=== PATIENT | male | born 1980 | race Caucasian/White ===

== ENCOUNTER 2018-10-12 14:33 | Inpatient (IN) ==
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
[2018-10-12] MEDS ORDERED: Sod Chloride 0.9% Inj 1,000 ML IV.CONT SCH (14:45)
[2018-10-12 15:18] LABS: Baso % (Auto) 0.3 % (0.0-2.0); Eos # (Auto) 0.1 th/mm3 (0.0-0.4); Eos % (Auto) 0.6 % (0.0-4.0); Hematocrit 41.2 % (39.0-51.0); Hemoglobin 14.6 gm/dL (13.0-17.0); Lymph # (Auto) 1.5 th/mm3 (1.0-4.8); Lymph % (Auto) 14.7 % (9.0-44.0); Mean Corpuscular HGB Conc 35.4 % (32.0-36.0); Mean Corpuscular Hemoglobin 30.5 pg (27.0-34.0); Mean Corpuscular Volume 86.2 fL (80.0-100.0); Mean Platelet Volume 7.7 fL (7.0-11.0); Mono # (Auto) 0.5 th/mm3 (0.0-0.9); Mono % (Auto) 4.5 % (0.0-8.0); Neut # (Auto) 8.3 th/mm3 (1.8-7.7); Neut % (Auto) 79.9 % (16.0-70.0); Platelet Count 254 th/mm3 (150-450); Red Blood Count 4.78 mil/mm3 (4.50-5.90); Red Cell Distribution Width 13.1 % (11.6-17.2); White Blood Count 10.4 th/mm3 (4.0-11.0)
[2018-10-12 15:46] LABS: Alanine Aminotransferase 30 U/L (12-78); Alkaline Phosphatase 62 U/L (45-117); Total Protein 8.1 g/dL (6.4-8.2)
[2018-10-12 15:52] LABS: Albumin 4.1 g/dL (3.4-5.0); Anion Gap 7 meq/L (5-15); Aspartate Aminotransferase 25 U/L (15-37); Blood Urea Nitrogen 16 mg/dL (7-18); Calcium 8.8 mg/dL (8.5-10.1); Carbon Dioxide 27.5 meq/L (21.0-32.0); Chloride 103 meq/L (98-107); Glomerular Filtration Rate 77 mL/min (>89); Glucose,Random 94 mg/dL (74-106); Potassium 4.2 meq/L (3.5-5.1); Sodium 137 meq/L (136-145)
[2018-10-12 16:16] LABS: Bilirubin,Urine Negative (Negative); Clarity,Urine Clear (Clear); Color,Urine Yellow (Yellw/Straw); Glucose,Urine (UA) Negative (Negative); Leukocyte Esterase,Urine Negative (Negative); Mucus,Urine Few /lpf (Occasional); Nitrite,Urine Negative (Negative); Specific Gravity,Urine 1.019 (1.002-1.035); Squamous Epithelial Cell,Urine <1 /hpf (0-5)
[2018-10-12 16:21] LABS: Amphetamine Screen,Urine Neg (Neg); Barbiturate Screen,Urine Neg (Neg); Cannabinoid Screen,Urine Neg (Neg); Cocaine Screen,Urine Neg (Neg)
[2018-10-12 16:27] LABS: Opiate Screen,Urine Pos (Neg)
[2018-10-12] MEDS ORDERED: Gadobutrol PF 10 MMOL/10 ML Vial (for RAD) IV.SIG ONE (16:36)
--- NOTE | 2018-10-12 16:52 | MR ---
EXAM DATE: 10/12/2018 4:47 PM EST AGE/SEX: 38 years / Male INDICATIONS: . Urinary retention. CLINICAL DATA: This is the patient's initial encounter. Patient reports that signs and symptoms have been present for 1 day and indicates a pain score of 5/10. MEDICAL/SURGICAL HISTORY: Hypertension. IVDU. Discectomy, cervical. Appendectomy. Cholecyste ctomy. COMPARISON: No prior exams available for comparison. TECHNIQUE: Multiplanar, multisequence MRI of the thoracic spine was performed without and with 11 ml Gadavist (gadobutrol) contrast as a single exam dose. FINDINGS: Vertebrae: Normal vertebral body height. Homogeneous marrow signal. Alignment: Normal. Cord: Normal sized to the thoracic cord has normal signal characteristics within. The conus is at th e level of T12. Post Contrast: No abnormal areas of enhancement are seen in the cord, dural or paraspinal regions. T1-T2: The thecal sac has a normal diameter. No evidence of disc bulge or protrusion. T2-T3: The thecal sac has a normal diameter. No evidence of disc bulge or protrusion. T3-T4: The thecal sac has a normal diameter. No evidence of disc bulge or protrusion. T4-T5: The thecal sac has a normal diameter. No evidence of disc bulge or protrusion. T5-T6: Mild left parasagittal disc bulging. T6-T7: Small central disc protrusion measuring less than 2 mm indenting on the thecal sac but not ca using cord compression. No lateral extension. T7-T8: Mild central and left paracentral bulging of the disc causing mild flattening of the ventral margin of thecal sac. T8-T9: The thecal sac has a normal diameter. No evidence of disc bulge or protrusion. T9-T10: The thecal sac has a normal diameter. No evidence of disc bulge or protrusion. T10-T11: The thecal sac has a normal diameter. No evidence of disc bulge or protrusion. Moderate as ymmetric facet joint hypertrophy on the right side indenting on the dorsal lateral aspect of the thec al sac. T11-T12: The thecal sac has a normal diameter. No evidence of disc bulge or protrusion. T12-L1: The thecal sac has a normal diameter. No evidence of disc bulge or protrusion. CONCLUSION: 1. Small central disc protrusion at T6-7 without evidence of cord compression or lateral extension. 2. Mild disc bulging T5-6 and T7-8. Electronically signed by: Rl Romo MD 10/12/2018 4:51 PM EST
--- NOTE | 2018-10-12 17:00 | MR ---
EXAM DATE: 10/12/2018 4:49 PM EST AGE/SEX: 38 years / Male INDICATIONS: . Urinary retention. CLINICAL DATA: This is the patient's initial encounter. Patient reports that signs and symptoms have been present for 1 day and indicates a pain score of 4/10. MEDICAL/SURGICAL HISTORY: Hypertension. Cholecystectomy. Appendectomy. Discectomy, cervical. COMPARISON: No prior exams available for comparison. TECHNIQUE: Multiplanar, multisequence MRI examination of the lumbar spine was performed without and with 11 ml Gadavist (gadobutrol) contrast as a single exam dose. FINDINGS: The most caudal-appearing lumbar vertebra is numbered as L5. There is normal alignment of the vertebral bodies of the lumbar spine and preservation of vertebral body height. No signal abnorma lity is seen within the marrow. There is desiccation of the L3-S1 discs without significant loss of i nterspace height. The conus is at the level of T12. On the postcontrast images, there is some enhance ment in the disc extrusion at L2-3 and in the posterior annulus of L5-S1. No abnormal enhancement in the vertebral bodies or posterior elements. T12-L1: The thecal sac has a normal diameter. No evidence of disc bulge or protrusion. The neural foramina are patent bilaterally. L1-L2: The thecal sac has a normal diameter. No evidence of disc bulge or protrusion. The neural foramina are patent bilaterally. L2-L3: Abnormal. There is a central extrusion of the disc which causes significant impression upon the thecal sac and loss of CSF within the thecal sac. The extrusion measures 8 mm in AP dimension and does not significantly extend superior inferior, however, there is soft tissue posterior to the L2 a nd L3 vertebral bodies which is more prominent right parasagittal than left and causes indentation up on the thecal sac. No lateral extension into the neural foramina.. L3-L4: The thecal sac has a normal diameter. No evidence of disc bulge or protrusion. The neural foramina are patent bilaterally. L4-L5: Mild left lateral disc bulging into the neural foramen without neural impingement. No centra l disc bulge. L5-S1: High intensity zone of signal in the posterior inferior annulus and evidence of a central di sc protrusion which is contained within the epidural fat. There is no deformity of the thecal sac and no deviation of the S1 nerve roots as they course through the bony spinal canal. CONCLUSION: 1. Large central disc extrusion at the L2-3 level causing significant impression on the thecal sac a nd probably causing significant neural impingement on the nerve roots within the thecal sac. 2. Annular tear and central disc protrusion at the L5-S1 level contained within the epidural fat wit hout deformity of the thecal sac or lateral extension. Electronically signed by: Rl Romo MD 10/12/2018 4:59 PM EST
--- NOTE | 2018-10-12 19:14 | P.CONNS ---
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 Seen in [facility] ED, given pain meds and these worked off and on during the week, may have had some urinary retention. Overnight, pain became severe and he was unable to come in. Finally came during the day, had such severe pain, he couldn't really stand. Transfer from [facility] to here due to MRI, showing at L2/3 severe stenosis due to a herniated disc. He is not numb in his inguinal regions but describes coldness in his feet and testicle. He has had prior cervical laminectomy in 2015 [place] due to a delayed hematoma from a fracture requiring 2 level lami's, no fusion. [facility] - History History Provided By: Patient, Family Member - Medical History Medical History: Medical History (Last Reviewed 10/12/18 @ 14:36 by Sushant Titus) Hx of blood clots Patient denies medical problems - Surgical History Surgical History: Surgical History (Last Reviewed 10/12/18 @ 14:36 by Sushant Titus) Hx of appendectomy Hx of cholecystectomy Hx of laminectomy Hx of neck surgery - Tobacco History Second Hand Smoke Exposure: No Smoking Status: Never smoker - Alcohol History How Often Do You Have a Drink Containing Alcohol: Never - Substance Use History Substance History: No History of Abuse - Travel History Recent Travel in the [place] Within the Last 8 Weeks: No Recent Travel Out of the Country Within the Last 8 Weeks: No - Immunization History Tetanus Immunization: Unsure Medications and Allergies Active Medications: Active Medications Sodium Chloride (Ns Inj) 1,000 mls @ 125 mls/hr IV.CONT .Q8H JOHN Stop: 10/12/18 22:44 Last Admin: 10/12/18 15:23 Dose: 125 mls/hr Sodium Chloride (Ns Flush) 2 ml IV.FLUSH UNSCH PRN PRN Reason: FLUSH AFTER USING IV ACCESS Allergies Allergy/AdvReac Type Severity Reaction Status Date / Time acetaminophen [From Percocet] AdvReac Agitation Verified 10/12/18 11:29 oxycodone [From Percocet] AdvReac Agitation Verified 10/12/18 11:29 Exam Vital signs: Vital Signs 10/12/18 14:39 10/12/18 15:06 Temperature 97 F L Pulse Rate 76 72 Respiratory Rate 18 Blood Pressure 170/68 H Pulse Oximetry 99 96 Intake & Output 10/12/18 10/12/18 10/13/18 06:59 18:59 06:59 Output Total 100 / 100 Balance -100 / -100 Weight 111.13 kg Output: Urine 100 / 100 Narrative: A&O x 3 CN ii-xii intact motor 5/5 UE/LE-- individually tests to full strength in all groups and he is able to stand, but not upright sensation intact throughout Results - Laboratory Findings CBC and BMP: 10/12/18 14:53 10/12/18 14:53 Abnormal lab findings: Abnormal Labs 10/12/18 10/12/18 10/12/18 14:53 14:53 16:04 Neut % (Auto) 79.9 H Neut # (Auto) 8.3 H Estimated GFR 77 L Urine Mucus Urine Opiates Screen Pos H 10/12/18 16:04 Neut % (Auto) Neut # (Auto) Estimated GFR Urine Mucus Few H Urine Opiates Screen - Diagnostic Findings Additional findings: MRI L-spine showing large disc at L2/3 with central stenosis Assessment and Plan - Plan 38yoM with cauda equina type syndrome from L2/3 disc. Unclear if urinary symptoms are from narcotics as he is able to void. But pain is severe and he is unable to stand upright. Discussed watching this vs. surgery and my preference would be surgery urgently. Patient is in agreement. Plan for full L2/3 lami and discectomy. Patient understands the risks of surgery including CSF leak.
[2018-10-12] MEDS ORDERED: Thrombin Topical Soln 5,000 UNIT Vial TOPICAL ONE (19:25)
[2018-10-12] MEDS ORDERED: Lidocaine 1%/Epinephrine 1:100,000 Inj 30 ML Vial ONE (19:25)
[2018-10-12] MEDS ORDERED: Bupivacaine 0.25% Inj 50 ML MDV Vial ONE (19:25)
[2018-10-12] MEDS ORDERED: Gelatin Size 100 Topical Foam ONE (19:26)
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
[2018-10-12] MEDS ORDERED: Lidocaine PF 1% Inj 5 ML Syringe OTHER ONE (20:22)
[2018-10-12] MEDS ORDERED: Sugammadex Inj 200 MG/2 ML Vial IV.PUSH ONE (22:08)
--- NOTE | 2018-10-12 22:27 | P.OP ---
- Preoperative Diagnosis (1) Disc disease with myelopathy, lumbar (2) Cauda equina syndrome - Postoperative Diagnosis (1) Cauda equina syndrome (2) Disc disease with myelopathy, lumbar Date of procedure: 10/12/18 Procedure: L2/3 laminectomy and right microdiscectomy Anesthesia: SCARLETT Surgeon: Iván Bellamy MD Estimated blood loss (mL): 50 Pathology: none sent Operation and Findings: Indications: This is a 38yo male with one week history of progressive back pain with now urinary retention and pain so severe he cannot stand. He has been to the ED twice, including today on exacerbation of his pain. Microdiscectomy due to severe stenosis and laminectomy are indicated for decompression. Description of procedure: Patient brought to Main OR and the procedure done under general. Mid lumbar spine was prepped and draped in the usual sterile fashion. Fluoroscopy was used to isolate the L2/3 interspace. Incision infiltrated, then opened sharply to the L2/3 interval. Monopolar cautery used to complete a subperiosteal dissection down the L2 spinous process and lamina bilaterally. Leksell used to remove the l2 spinous process and drill used to complete the laminectomy over inferior L2. Curettes used to free the ligamentum flavum which was removed with a 3-Kerrison, then epidural fat. Thecal sac appeared full and bulging. Right medial facet drilled to expose the underlying nerve root. Very large disc fragment was removed in one piece and then discectomy performed at L2/3 interval. At the completion of discectomy, thecal sac and underlying nerve root were free of tension. Wound irrigated with antibiotic irrigation, and surgiflo placed in the exposed discectomy site. Wound closed in layers with interrupted 2-0 Vicryl for deep and superficial fascia, 3-0 Vicryl inverted for subcutaneous, monocril and dermabond for skin. Sterile dressings applied, patient returned supine,extubated, and sent to recovery in stable condition.
[2018-10-12] MEDS ORDERED: Morphine Inj 4 MG/ML Vial ONE (22:46)
[2018-10-12] MEDS ORDERED: fentaNYL Citrate Inj 100 MCG/2 ML Ampul ONE (22:46)
[2018-10-12] MEDS ORDERED: Morphine Sulfate Inj 2 MG/ML Vial IV.PUSH PRN (22:55)
[2018-10-12] MEDS ORDERED: Morphine Inj 4 MG/ML Vial IV.PUSH PRN (22:59)
--- NOTE | 2018-10-12 23:09 | XR ---
EXAM DATE: 10/12/2018 10:59 PM EST AGE/SEX: 38 years / Male INDICATIONS: Level location for laminectomy lumbar spine at the two-three level. CLINICAL DATA: This is the patient's subsequent encounter. Patient reports that signs and symptoms h ave been present for 1 day and indicates a pain score of Nonresponsive. MEDICAL/SURGICAL HISTORY: Hypertension. Cholecystectomy. Appendectomy. Discectomy, cervical. COMPARISON: No prior exams available for comparison. FINDINGS: 3 intraoperative films demonstrates localization device extending through the L3 vertebral body CONCLUSION: Final film demonstrates localization of the spinous process I believe of L3 Electronically signed by: Duke Zee MD 10/12/2018 11:08 PM EST
[2018-10-12] MEDS: Senna/Docusate Sodium 8.6/50 MG Tablet PO SCH (23:11)
[2018-10-13] MEDS: Acetaminophen 325 MG Tablet PO PRN ×2 (07:41→20:08)
[2018-10-13] MEDS: Senna/Docusate Sodium 8.6/50 MG Tablet PO SCH ×3 (07:42→20:08)
--- NOTE | 2018-10-13 11:20 | P.PNNS ---
Subjective Interval history: Doing well this morning, pain much improved in back. looking forward to working with PT. Physical Exam Vital signs: Vital Signs 10/12/18 14:39 10/12/18 15:06 10/12/18 22:38 Temperature 97 F L 97.8 F Pulse Rate 76 72 100 H Respiratory Rate 18 16 Blood Pressure 170/68 H 127/61 Pulse Oximetry 99 96 100 10/12/18 22:45 10/12/18 23:00 10/12/18 23:15 Temperature 97.5 F L Pulse Rate 92 H 107 H 96 H Respiratory Rate 18 21 16 Blood Pressure 138/72 143/72 H 142/77 H Pulse Oximetry 100 98 98 10/13/18 00:00 10/13/18 04:00 10/13/18 07:21 Temperature 97.6 F 97.7 F Pulse Rate 82 70 56 L Respiratory Rate 18 17 Blood Pressure 148/77 H 135/75 Pulse Oximetry 99 99 10/13/18 08:00 Temperature 97.8 F Pulse Rate 71 Respiratory Rate 18 Blood Pressure 130/69 Pulse Oximetry 99 Intake & Output 10/12/18 10/13/18 10/13/18 18:59 06:59 18:59 Intake Total 950 / 950 Output Total 100 / 100 800 / 800 Balance -100 / -100 150 / 150 Weight 111.13 kg Intake: IV 0 / 0 NS Inj 1,000 ML @ 125 mls/hr IV 0 / 0 .CONT .Q8H COUNTS INCLUDE 234 BEDS AT THE [facility] Rx#:[id number] Anesthesia Amount 950 / 950 Output: Urine 100 / 100 Estimated Blood Loss 200 / 200 Urine Amount (Catheter) 600 / 600 Indwelling Urethral Catheter 600 / 600 Narrative: Dressing c/d/i full strength UE/LE sensation intact Voided three times this morning - Urinary Catheter Management Indwelling Urethral Catheter Cath placed during this visit: yes, but has since been removed by the nurse Reason for continuing: Decision to DC catheter Insertion date: 10/12/18 Removal date: 10/13/18 Removal time: 00:00 Assessment and Plan - Plan 38yoM with cauda equina type syndrome from L2/3 disc. Unclear if urinary symptoms are from narcotics as he is able to void. But pain is severe and he is unable to stand upright. Discussed watching this vs. surgery and my preference would be surgery urgently. Patient is in agreement. Plan for full L2/3 lami and discectomy. Patient understands the risks of surgery including CSF leak. 10/13 Doing well after surgery, PT, activity and diet as tolerated anticipate d/c 10/14 - with 6 week followup no heavy lifting > 10 lbs during this time dressing off in 1-2 days without replacement
--- NOTE | 2018-10-13 11:50 | P.HPFP ---
History of Present Illness Primary Care Physician: UNKNOWN Chief Complaint: Increased pain, difficulty walking History of Present Illness: reviewed and discussed H&P from overnight resident Dr Haines. Agree with his histories and ROS as document. Interval history: Had L2/L3 laminectomy and microdiscectomy by Dr Bellamy. He is doing well and moving his legs without difficulty this AM. He is eating post operatively and about to work with PT. He is urinating well after the procedure, no fevers or chills or vomiting Pain is under good control. - Diagnosis (1) Nutrition, metabolism, and development symptoms (2) Disc disease with myelopathy, lumbar (3) Cauda equina syndrome Inpatient Certification: I certify that the inpatient services were ordered in accordance with Medicare regulations governing the order. This includes certification that hospital inpatient services are reasonable and necessary and in the case of services not specified as inpatient-only under 42 CFR 419.22(n), that they are appropriately provided as inpatient services in accordance to with the 2-midnight benchmark under 43 CFR 412.3(e) Estimated Total Length of Stay (Days): 2 Plans for Post Hospital Care: Home [facility], [facility] - History History Provided By: Patient - Medical History Medical History: Medical History (Last Reviewed 10/13/18 @ 11:32 by Kim Syed PT) Hx of blood clots Patient denies medical problems - Surgical History Surgical History: Surgical History (Last Reviewed 10/13/18 @ 11:32 by Kim Syed PT) Hx of appendectomy Hx of cholecystectomy Hx of laminectomy Hx of neck surgery - Tobacco History Second Hand Smoke Exposure: No Tobacco Use In Past 30 Days: No Smoking Status: Never smoker - Alcohol History How Often Do You Have a Drink Containing Alcohol: Never - Substance Use History Substance History: No History of Abuse - Travel History Recent Travel in the [place] Within the Last 8 Weeks: No Recent Travel Out of the Country Within the Last 8 Weeks: No - Immunization History Tetanus Immunization: >5 Years Hx Influenza Vaccine This Season: No Medications and Allergies Active Medications: Active Medications Acetaminophen (Tylenol) 650 mg PO Q6H PRN PRN Reason: HEADACHE, FEVER > 101 Last Admin: 10/13/18 07:41 Dose: 650 mg Hydrocodone Bitart/Acetaminophen ([facility] [place] 5/325) 1 tab PO Q6H PRN PRN Reason: PAIN 1-5 Hydrocodone Bitart/Acetaminophen ([facility] [place] 5/325) 2 tab PO Q6H PRN PRN Reason: PAIN 6-10 Cyclobenzaprine HCl (Flexeril) 10 mg PO Q8H PRN PRN Reason: MUSCLE SPAMPS Lactated Ringer's (Lr 1000 Ml Inj) 1,000 mls @ 75 mls/hr IV.SIG .[id number] [facility] Last Admin: 10/12/18 23:00 Dose: 75 mls/hr Miscellaneous Information ([facility]) 1 each OTHER UNSCH PRN PRN Reason: SEE LABEL COMMENTS Stop: 10/13/18 22:54 Morphine Sulfate (Morphine Inj) 2 mg IV.PUSH Q2H PRN PRN Reason: PAIN 1-5 Morphine Sulfate (Morphine Inj) 4 mg IV.PUSH Q2H PRN PRN Reason: PAIN 6-10 Ondansetron HCl (Zofran Inj) 4 mg IV.PUSH Q6H PRN PRN Reason: NAUSEA OR VOMITING Senna/Docusate Sodium (Yissel-Colace) 1 tab PO BID [facility] Last Admin: 10/13/18 11:28 Dose: Not Given Sodium Chloride (Ns Flush) 2 ml IV.FLUSH UNSCH PRN PRN Reason: FLUSH AFTER USING IV ACCESS Allergies Allergy/AdvReac Type Severity Reaction Status Date / Time acetaminophen [From Percocet] AdvReac Agitation Verified 10/12/18 11:29 oxycodone [From Percocet] AdvReac Agitation Verified 10/12/18 11:29 Exam Vital signs: Vital Signs 10/12/18 14:39 10/12/18 15:06 10/12/18 22:38 Temperature 97 F L 97.8 F Pulse Rate 76 72 100 H Respiratory Rate 18 16 Blood Pressure 170/68 H 127/61 Pulse Oximetry 99 96 100 10/12/18 22:45 10/12/18 23:00 10/12/18 23:15 Temperature 97.5 F L Pulse Rate 92 H 107 H 96 H Respiratory Rate 18 21 16 Blood Pressure 138/72 143/72 H 142/77 H Pulse Oximetry 100 98 98 10/13/18 00:00 10/13/18 04:00 10/13/18 07:21 Temperature 97.6 F 97.7 F Pulse Rate 82 70 56 L Respiratory Rate 18 17 Blood Pressure 148/77 H 135/75 Pulse Oximetry 99 99 10/13/18 08:00 10/13/18 11:34 Temperature 97.8 F 97.8 F Pulse Rate 71 66 Respiratory Rate 18 18 Blood Pressure 130/69 142/65 H Pulse Oximetry 99 98 Intake & Output 10/12/18 10/13/18 10/13/18 18:59 06:59 18:59 Intake Total 950 / 950 Output Total 100 / 100 800 / 800 Balance -100 / -100 150 / 150 Weight 111.13 kg Intake: IV 0 / 0 NS Inj 1,000 ML @ 125 mls/hr IV 0 / 0 .CONT .Q8H [facility] Rx#:[id number] Anesthesia Amount 950 / 950 Output: Urine 100 / 100 Estimated Blood Loss 200 / 200 Urine Amount (Catheter) 600 / 600 Indwelling Urethral Catheter 600 / 600 - Constitutional no acute distress - Routine HEENT Exam Head: Present: normocephalic, atraumatic Eye: Present: EOMI, PERRL ENT: Present: mucous membranes moist - Routine Neck Exam Present: supple, full ROM - Routine Respiratory Exam Present: CTA bilaterally. Absent: accessory muscle use, rhonchi, wheezes, crackles - Routine Cardiovascular Exam Present: RRR, S1, S2 - Routine Abdominal Exam Present: soft, normoactive bowel sounds - Routine Extremities Exam Present: pulses intact. Absent: cyanosis, clubbing, edema - Routine Skin Exam Present: intact - Routine Neurological Exam Present: alert, oriented X3 able to lift both legs off the bed and also bring knees up to level of hips. He has no sensory deficits to feet, legs, or thigh. Results - Labs Result diagrams: 10/12/18 14:53 10/12/18 14:53 Abnormal lab results 10/12/18 10/12/18 10/12/18 Range/Units 14:53 14:53 16:04 Neut % (Auto) 79.9 H (16.0-70.0) % Neut # (Auto) 8.3 H (1.8-7.7) th/mm3 Estimated GFR 77 L (>89) mL/min Urine Mucus (Occasional) /lpf Urine Opiates Screen Pos H (Neg) 10/12/18 Range/Units 16:04 Neut % (Auto) (16.0-70.0) % Neut # (Auto) (1.8-7.7) th/mm3 Estimated GFR (>89) mL/min Urine Mucus Few H (Occasional) /lpf Urine Opiates Screen (Neg) Short CBC 10/12/18 Range/Units 14:53 WBC 10.4 (4.0-11.0) th/mm3 Hgb 14.6 (13.0-17.0) gm/dL Hct 41.2 (39.0-51.0) % Plt Count 254 (150-450) th/mm3 BMP 10/12/18 14:53 Sodium 137 Potassium 4.2 Chloride 103 Carbon Dioxide 27.5 BUN 16 Creatinine 1.07 Calcium 8.8 Liver Function 10/12/18 Range/Units 14:53 Total Bilirubin 0.7 (0.2-1.0) mg/dL AST 25 (15-37) U/L ALT 30 (12-78) U/L Alkaline Phosphatase 62 (45-117) U/L Albumin 4.1 (3.4-5.0) g/dL Urine 10/12/18 Range/Units 16:04 Urine Color Yellow (Yellw/Straw) Urine Clarity Clear (Clear) Urine pH 6.0 (5.0-8.5) Ur Specific [place] 1.019 (1.002-1.035) Urine Protein Negative (Neg-Trace) mg/dL Urine Glucose (UA) Negative (Negative) mg/dL - Imaging Impressions Lumbar Spine X-Ray 10/12/18 00:00 CONCLUSION: Final film demonstrates localization of the spinous process I believe of L3 Lumbar Spine MRI 10/12/18 14:39 CONCLUSION: 1. Large central disc extrusion at the L2-3 level causing significant impression on the thecal sac and probably causing significant neural impingement on the nerve roots within the thecal sac. 2. Annular tear and central disc protrusion at the L5-S1 level contained within the epidural fat without deformity of the thecal sac or lateral extension. Thoracic Spine MRI 10/12/18 14:39 CONCLUSION: 1. Small central disc protrusion at T6-7 without evidence of cord compression or lateral extension. 2. Mild disc bulging T5-6 and T7-8. Caprini VTE Risk Assessment Caprini VTE Risk Assessment: Moderate/High Risk (score >= 2) Caprini Risk Assessment Model: Point Value = 1 Point Value = 2 Point Value = 3 Point Value = 5 Age 41-60 Minor surgery BMI > 25 kg/m2 Swollen legs Varicose veins or History of unexplained or recurrent spontaneous Oral contraceptives or hormone replacement Sepsis (< 1 month) Serious lung disease, including pneumonia (< 1 month) Abnormal pulmonary function Acute myocardial infarction Congestive heart failure (< 1 month) History of inflammatory bowel disease Medical patient at bed rest Age 61-74 Arthroscopic surgery Major open surgery (> 45 min) Laparoscopic surgery (> 45 min) Malignancy Confined to bed (> 72 hours) Immobilizing plaster cast Central venous access Age >= 75 History of VTE Family history of VTE Factor V Leiden Prothrombin [id number] Lupus anticoagulant Anticardiolipin antibodies Elevated serum homocysteine Heparin-induced thrombocytopenia Other congenital or acquired thrombophilia Stroke (< 1 month) Elective arthroplasty Hip, pelvis, or leg fracture Acute spinal cord injury (< 1 month) Prophylaxis Regimen: Total Risk Factor Score Risk Level Prophylaxis Regimen 0-1 Low Early ambulation 2 Moderate Order ONE of the following: *Sequential Compression Device (SCD) *Heparin 5000 units SQ BID 3-4 Higher Order ONE of the following medications: *Heparin 5000 units SQ TID *Enoxaparin/Lovenox 40 mg SQ daily (WT < 150 kg, CrCl > 30 mL/min) *Enoxaparin/Lovenox 30 mg SQ daily (WT < 150 kg, CrCl > 10-29 mL/min) *Enoxaparin/Lovenox 30 mg SQ BID (WT < 150 kg, CrCl > 30 mL/min) AND/OR *Sequential Compression Device (SCD) 5 or more Highest Order ONE of the following medications: *Heparin 5000 units SQ TID (Preferred with Epidurals) *Enoxaparin/Lovenox 40 mg SQ daily (WT < 150 kg, CrCl > 30 mL/min) *Enoxaparin/Lovenox 30 mg SQ daily (WT < 150 kg, CrCl > 10-29 mL/min) *Enoxaparin/Lovenox 30 mg SQ BID (WT < 150 kg, CrCl > 30 mL/min) AND *Sequential Compression Device (SCD) Assessment and Plan - Assessment (1) Nutrition, metabolism, and development symptoms Code(s): R63.8 - Other symptoms and signs concerning food and fluid intake Status: Acute (2) Disc disease with myelopathy, lumbar Code(s): M51.06 - Intervertebral disc disorders with myelopathy, lumbar region Status: Acute (3) Cauda equina syndrome Code(s): G83.4 - Cauda equina syndrome Status: Acute - Assessment and Plan 38 YO male with Cauda equina syndrome -Neurosurgery consultedDr. Reddyrecommendations appreciated - POD #1 Laminectomy and discectomy - Appears to be doing well - Continue PT, pain control and follow NS recs - hopeful d/c if still doing well tomorrow NAFLD outpatient follow up D/W resident team. H&P: Quality - VTE Deep Vein Thrombosis/Pulmonary Embolism Present on Admission: No
[2018-10-14 04:53] VITALS: O2SAT 98
[2018-10-14 06:21] LABS: Alanine Aminotransferase 22 U/L (12-78); Albumin 3.5 g/dL (3.4-5.0); Anion Gap 8 meq/L (5-15); Aspartate Aminotransferase 16 U/L (15-37); Blood Urea Nitrogen 13 mg/dL (7-18); Calcium 8.3 mg/dL (8.5-10.1); Carbon Dioxide 27.6 meq/L (21.0-32.0); Chloride 104 meq/L (98-107); Glomerular Filtration Rate 78 mL/min (>89); Glucose,Random 92 mg/dL (74-106)
[2018-10-14 06:24] LABS: Alkaline Phosphatase 55 U/L (45-117); Total Protein 7.1 g/dL (6.4-8.2)
[2018-10-14 06:34] LABS: Sodium 140 meq/L (136-145)
[2018-10-14 07:19] LABS: Hematocrit 40.8 % (39.0-51.0); Hemoglobin 13.6 gm/dL (13.0-17.0); Mean Corpuscular HGB Conc 33.2 % (32.0-36.0); Mean Corpuscular Hemoglobin 29.9 pg (27.0-34.0); Mean Corpuscular Volume 89.9 fL (80.0-100.0); Red Blood Count 4.54 mil/mm3 (4.50-5.90); Red Cell Distribution Width 13.3 % (11.6-17.2); White Blood Count 11.2 th/mm3 (4.0-11.0)
[2018-10-14 07:20] LABS: Baso % (Auto) 0.2 % (0.0-2.0); Eos # (Auto) 0.1 th/mm3 (0.0-0.4); Eos % (Auto) 0.9 % (0.0-4.0); Lymph # (Auto) 2.4 th/mm3 (1.0-4.8); Mean Platelet Volume 8.1 fL (7.0-11.0); Mono # (Auto) 1.1 th/mm3 (0.0-0.9); Mono % (Auto) 10.1 % (0.0-8.0); Neut # (Auto) 7.6 th/mm3 (1.8-7.7); Neut % (Auto) 67.8 % (16.0-70.0); Platelet Count 212 th/mm3 (150-450)
[2018-10-14 08:28] VITALS: RESP 18
[2018-10-14] MEDS: Senna/Docusate Sodium 8.6/50 MG Tablet PO SCH (09:11)
[2018-10-14] MEDS: Acetaminophen 325 MG Tablet PO PRN (09:12)
--- NOTE | 2018-10-14 10:51 | P.PNNS ---
Subjective Interval history: Pt awake and alert. States he is doing well. No radiculopathy in LEs. He is urinating well without straining. He has had 2 BMs he states. He has been up ambulating. Pt would like to go home. Physical Exam Vital signs: Vital Signs 10/13/18 11:34 10/13/18 12:04 10/13/18 16:00 Temperature 97.8 F 98.0 F Pulse Rate 66 75 Respiratory Rate 18 14 16 Blood Pressure 142/65 H 154/70 H Pulse Oximetry 98 99 10/13/18 20:00 10/13/18 20:20 10/14/18 00:00 Temperature 99.3 F 97.8 F Pulse Rate 85 77 76 Respiratory Rate 16 16 Blood Pressure 162/76 H 152/74 H Pulse Oximetry 97 96 10/14/18 00:15 10/14/18 04:00 10/14/18 04:45 Temperature 98.2 F Pulse Rate 70 74 63 Respiratory Rate 17 Blood Pressure 145/70 H Pulse Oximetry 98 10/14/18 07:45 10/14/18 09:00 Temperature 98.1 F Pulse Rate 81 101 H Respiratory Rate 18 Blood Pressure 139/77 Pulse Oximetry 98 Intake & Output 10/13/18 10/14/18 10/14/18 18:59 06:59 18:59 Intake Total 1960 / 1960 Output Total 800 / 800 Balance 1160 / 1160 Intake: IV 1000 / 1000 LR 1000 mL Inj 1,000 ML @ 75 1000 / 1000 mls/hr IV.SIG .[id number] JOHN Rx#: [id number] Oral 960 / 960 Output: Urine 800 / 800 Other: # Voids 4 Date of Last Bowel Movement 10/14/18 10/14/18 # Bowel Movements 1 - Constitutional no acute distress, average body habitus, cooperative - Routine HEENT Exam Head: Present: normocephalic Eye: Present: PERRL - Routine Respiratory Exam Present: CTA bilaterally. Absent: rales, respiratory distress, rhonchi, wheezes - Routine Cardiovascular Exam Present: RRR, S1, S2. Absent: murmur - Routine Abdominal Exam Present: soft, normoactive bowel sounds. Absent: tenderness, distended - Routine Skin Exam Absent: cyanosis, erythema - Routine Neurological Exam Present: alert, moving all extremities. Absent: sensory deficit, motor deficit - Routine Psychiatric Exam Present: normal affect, cooperative. Absent: anxious, agitated - Urinary Catheter Management Indwelling Urethral Catheter Cath placed during this visit: yes, but has since been removed by the nurse Reason for continuing: Decision to DC catheter Insertion date: 10/12/18 Removal date: 10/13/18 Removal time: 00:00 Assessment and Plan - Assessment (1) Disc disease with myelopathy, lumbar Code(s): M51.06 - Intervertebral disc disorders with myelopathy, lumbar region Status: Acute (2) Cauda equina syndrome Code(s): G83.4 - Cauda equina syndrome Status: Acute (3) Nutrition, metabolism, and development symptoms Code(s): R63.8 - Other symptoms and signs concerning food and fluid intake Status: Acute - Plan 38yoM with cauda equina type syndrome from L2/3 disc. Unclear if urinary symptoms are from narcotics as he is able to void. But pain is severe and he is unable to stand upright. Discussed watching this vs. surgery and my preference would be surgery urgently. Patient is in agreement. Plan for full L2/3 lami and discectomy. Patient understands the risks of surgery including CSF leak. 10/13 Doing well after surgery, PT, activity and diet as tolerated anticipate d/c 10/14 - with 6 week followup no heavy lifting > 10 lbs during this time dressing off in 1-2 days without replacement 10/14 Pt doing very well and denies any residual difficulty urinating. I discussed in detail post op restrictions as well as incisional care. Pt expressed understanding of instructions.
--- NOTE | 2018-10-14 11:07 | P.PNFP ---
Subjective Interval history: Mr. Dale had no acute events overnight. He has worked with physical therapy and we will get him a front wheel walker to discharge with. Neurosurgery has cleared him for discharge. His pain is well controlled, he is voiding without trouble, has had several bowel movements, and his pain is well controlled. He appears to have no deficits at this point. Denies chest pain, shortness of breath, nausea, vomiting, diarrhea, abdominal or leg pain. <Mane Haines III H - 10/14/18 11:07> Results - Labs Result diagrams: 10/14/18 05:31 10/14/18 05:31 <Stewart Cazares - 10/14/18 15:31> Abnormal lab results 10/14/18 10/14/18 Range/Units 05:31 05:31 WBC 11.2 H (4.0-11.0) th/mm3 [place] % (Auto) 10.1 H (0.0-8.0) % [place] # (Auto) 1.1 H (0.0-0.9) th/mm3 Estimated GFR 78 L (>89) mL/min Calcium 8.3 L (8.5-10.1) mg/dL Short CBC 10/14/18 Range/Units 05:31 WBC 11.2 H (4.0-11.0) th/mm3 Hgb 13.6 (13.0-17.0) gm/dL Hct 40.8 (39.0-51.0) % Plt Count 212 (150-450) th/mm3 [facility] 10/14/18 05:31 Sodium 140 Potassium 4.0 Chloride 104 Carbon Dioxide 27.6 BUN 13 Creatinine 1.06 Calcium 8.3 L Liver Function 10/14/18 Range/Units 05:31 Total Bilirubin 0.9 (0.2-1.0) mg/dL AST 16 (15-37) U/L ALT 22 (12-78) U/L Alkaline Phosphatase 55 (45-117) U/L Albumin 3.5 D (3.4-5.0) g/dL <Stewart Cazares - 10/14/18 15:31> Abnormal lab results 10/14/18 10/14/18 Range/Units 05:31 05:31 WBC 11.2 H (4.0-11.0) th/mm3 [place] % (Auto) 10.1 H (0.0-8.0) % [place] # (Auto) 1.1 H (0.0-0.9) th/mm3 Estimated GFR 78 L (>89) mL/min Calcium 8.3 L (8.5-10.1) mg/dL Short CBC 10/14/18 Range/Units 05:31 WBC 11.2 H (4.0-11.0) th/mm3 Hgb 13.6 (13.0-17.0) gm/dL Hct 40.8 (39.0-51.0) % Plt Count 212 (150-450) th/mm3 BMP 10/14/18 05:31 Sodium 140 Potassium 4.0 Chloride 104 Carbon Dioxide 27.6 BUN 13 Creatinine 1.06 Calcium 8.3 L Liver Function 10/14/18 Range/Units 05:31 Total Bilirubin 0.9 (0.2-1.0) mg/dL AST 16 (15-37) U/L ALT 22 (12-78) U/L Alkaline Phosphatase 55 (45-117) U/L Albumin 3.5 D (3.4-5.0) g/dL <Zaki III,Mane H - 10/14/18 11:07> Physical Exam Vital signs: Vital Signs 10/13/18 16:00 10/13/18 20:00 10/13/18 20:20 Temperature 98.0 F 99.3 F Pulse Rate 75 85 77 Respiratory Rate 16 16 Blood Pressure 154/70 H 162/76 H Pulse Oximetry 99 97 10/14/18 00:00 10/14/18 00:15 10/14/18 04:00 Temperature 97.8 F 98.2 F Pulse Rate 76 70 74 Respiratory Rate 16 17 Blood Pressure 152/74 H 145/70 H Pulse Oximetry 96 98 10/14/18 04:45 10/14/18 07:45 10/14/18 09:00 Temperature 98.1 F Pulse Rate 63 81 101 H Respiratory Rate 18 Blood Pressure 139/77 Pulse Oximetry 98 10/14/18 12:00 Temperature 98.2 F Pulse Rate 75 Respiratory Rate 18 Blood Pressure 142/74 H Pulse Oximetry 98 Intake & Output 10/13/18 10/14/18 10/14/18 18:59 06:59 18:59 Intake Total 1960 / 1959 Output Total 800 / 800 Balance 1160 / 1160 Intake: IV 1000 / 1000 LR 1000 mL Inj 1,000 ML @ 75 1000 / 1000 mls/hr IV.SIG .[id number] JOHN Rx#: [id number] Oral 960 / 960 Output: Urine 800 / 800 Other: # Voids 4 Date of Last Bowel Movement 10/14/18 10/14/18 # Bowel Movements 1 <Stewart Cazares K - 10/14/18 15:31> Vital Signs 10/13/18 11:34 10/13/18 12:04 10/13/18 16:00 Temperature 97.8 F 98.0 F Pulse Rate 66 75 Respiratory Rate 18 14 16 Blood Pressure 142/65 H 154/70 H Pulse Oximetry 98 99 10/13/18 20:00 10/13/18 20:20 10/14/18 00:00 Temperature 99.3 F 97.8 F Pulse Rate 85 77 76 Respiratory Rate 16 16 Blood Pressure 162/76 H 152/74 H Pulse Oximetry 97 96 10/14/18 00:15 10/14/18 04:00 10/14/18 04:45 Temperature 98.2 F Pulse Rate 70 74 63 Respiratory Rate 17 Blood Pressure 145/70 H Pulse Oximetry 98 10/14/18 07:45 10/14/18 09:00 Temperature 98.1 F Pulse Rate 81 101 H Respiratory Rate 18 Blood Pressure 139/77 Pulse Oximetry 98 Intake & Output 10/13/18 10/14/18 10/14/18 18:59 06:59 18:59 Intake Total 1959 / 1960 Output Total 800 / 800 Balance 1160 / 1160 Intake: IV 1000 / 1000 LR 1000 mL Inj 1,000 ML @ 75 1000 / 1000 mls/hr IV.SIG .[id number] JOHN Rx#: [id number] Oral 960 / 960 Output: Urine 800 / 800 Other: # Voids 4 Date of Last Bowel Movement 10/14/18 10/14/18 # Bowel Movements 1 <Mane aHines III H - 10/14/18 11:07> Narrative: GENERAL: 38 YO male looking his stated age lying in bed in NAD. SKIN: Warm and dry. No rash or lesions. HEAD: Normocephalic. Atraumatic. MMM. EYES: No scleral icterus. No injection or drainage. NECK: Supple, trachea midline. No JVD or lymphadenopathy. CARDIOVASCULAR: Mildly tachycardic, regular rhythm without murmurs, gallops, or rubs. RESPIRATORY: Breath sounds equal bilaterally. No accessory muscle use. GASTROINTESTINAL: Abdomen soft, non-tender, nondistended. +BS. MUSCULOSKELETAL: No cyanosis, or edema. good strength and sensation in LEs/UEs , voiding and stooling appropriately. BACK: Nontender without obvious deformity. Dressing c/d/i. <Mane Haines III 10/14/18 11:07> - Urinary Catheter Management Indwelling Urethral Catheter Cath placed during this visit: no <Stewart Cazares 10/14/18 15:31> yes, but has since been removed by the nurse <Mane Haines III 10/14/18 11:07> Reason for continuing: Decision to DC catheter <Mane Haines III 10/14/18 11:07> Insertion date: 10/12/18 <Mane Haines III 10/14/18 11:07> Removal date: 10/13/18 <Mane Haines III 10/14/18 11:07> Removal time: 00:00 <Mane Haines III 10/14/18 11:07> Assessment and Plan - Assessment (1) Nutrition, metabolism, and development symptoms Code(s): R63.8 - Other symptoms and signs concerning food and fluid intake Status: Acute (2) Disc disease with myelopathy, lumbar Code(s): M51.06 - Intervertebral disc disorders with myelopathy, lumbar region Status: Acute (3) Cauda equina syndrome Code(s): G83.4 - Cauda equina syndrome Status: Acute <Stewart Cazares 10/14/18 15:31> (1) Nutrition, metabolism, and development symptoms Code(s): R63.8 - Other symptoms and signs concerning food and fluid intake Status: Acute (2) Disc disease with myelopathy, lumbar Code(s): M51.06 - Intervertebral disc disorders with myelopathy, lumbar region Status: Acute (3) Cauda equina syndrome Code(s): G83.4 - Cauda equina syndrome Status: Acute <Mane Haines III 10/14/18 11:03> - Assessment and Plan 38 YO male with Cauda equina syndrome -Neurosurgery consultedDr. Reddyrecommendations appreciated - POD #2 Laminectomy and discectomy - Appears to be doing well - Continue PT, pain control and follow NS recs - D/C today and follow up with neurosurgery in 4-6 weeks - Front wheeled walker ordered for discharge NAFLD outpatient follow up D/W Dr Cazares <Zaki GRAYMane H - 10/14/18 11:07> - Attending Attestation The exam, history, and the medical decision-making described in the above note were completed with the assistance of the resident physician. I reviewed and agree with the findings presented. I attest that I had a [id number] encounter with the patient on the same day, and personally performed and documented my assessment and findings in the medical record. Doing very well, minimal pain, voiding well. no numbness, weakness, or pain into legs or groin. He is up and walking to the restroom. Can d/c today with NS follow up. <Stewart Cazares - 10/14/18 15:31>
[2018-10-14 13:14] VITALS: BP 142/74; PULSE 75; TEMP 98.2
--- NOTE | 2018-10-15 11:16 | P.DS ---
Date of admission: 10/12/18 20:19 Primary care physician: UNKNOWN Brief History from admission: reviewed and discussed H&P from overnight resident Dr Haines. Agree with his histories and ROS as document. Interval history: Had L2/L3 laminectomy and microdiscectomy by Dr Bellamy. He is doing well and moving his legs without difficulty this AM. He is eating post operatively and about to work with PT. He is urinating well after the procedure, no fevers or chills or vomiting Pain is under good control. DS: Summary Hospital Course: Patient was found to have disc disease with myelopathy and cauda equina syndrome. He was taken to the OR on October 12 and had an L2\3 laminectomy and right microdiscectomy by Dr. Iván Bellamy. He tolerated this well with no neurological deficits. He was provided pain control. He worked with physical therapy prior to discharge and was sent home with a front wheeled walker. He will follow-up with neurosurgery as an outpatient. - Time Spent with Patient Total time spent providing and/or coordinating discharge services: Less than 30 minutes - Quality: VTE Deep Vein Thrombosis/Pulmonary Embolism Present on Admission: No Exam Vital signs: Vital Signs 10/14/18 12:00 Temperature 98.2 F Pulse Rate 75 Respiratory Rate 18 Blood Pressure 142/74 H Pulse Oximetry 98 Intake & Output 10/14/18 10/15/18 10/15/18 18:59 06:59 18:59 Other: Date of Last Bowel Movement 10/14/18 Results Procedures completed during hospitalization: L2/3 laminectomy and right microdiscectomy 10/12/[address] Iván Bellamy - Impressions ITS Impressions Lumbar Spine X-Ray 10/12/18 00:00 CONCLUSION: Final film demonstrates localization of the spinous process I believe of L3 Lumbar Spine MRI 10/12/18 14:39 CONCLUSION: 1. Large central disc extrusion at the L2-3 level causing significant impression on the thecal sac and probably causing significant neural impingement on the nerve roots within the thecal sac. 2. Annular tear and central disc protrusion at the L5-S1 level contained within the epidural fat without deformity of the thecal sac or lateral extension. Thoracic Spine MRI 10/12/18 14:39 CONCLUSION: 1. Small central disc protrusion at T6-7 without evidence of cord compression or lateral extension. 2. Mild disc bulging T5-6 and T7-8. Discharge Plan - Discharge Disposition Patient Disposition: 01 Discharge Home - Discharge Condition Condition: Stable - Discharge Order Discharge Orders: Discharge Order (Routine); Ordered 10/14/18 Ordered By: Micky Lucas - Discharge Details Anticipated Discharge Date: 10/14/18 - Physicians Team Primary Care Provider: UNKNOWN, Attending Provider: Stewart Cazares Other Providers: Iván Bellamy MD
== END 2018-10-14 14:47 | disposition home or self-care (01) ==
LOC: NEPD 14:33 → NEDA 20:19 → NEPD 20:28 → NEDA 21:03 → N06 21:37
PROVIDERS: ADMIT Family Medicine; ATTEND Family Medicine